=== PATIENT | male | born 1995 ===

== ENCOUNTER 2020-03-26 14:22 | Emergency (ER) | payer MEDICAID ==
[~2020-03-26] VITALS: Ht 182.9 cm; Wt 60.1 kg
[2020-03-26 14:48] VITALS: BP 138/81
--- NOTE | 2020-03-26 16:43 | NUR ---
N/A X 1
--- NOTE | 2020-03-26 16:49 | NUR ---
NO ANS X 2
--- NOTE | 2020-03-26 17:08 | NUR ---
NA X 3. PT ELOPED
== END 2020-03-26 17:12 | disposition left against medical advice (07) ==
LOC: ED 14:30
DX: L01.00 Impetigo, unspecified (principal)
CPT/HCPCS: 99281